=== PATIENT | male | born 1960 | race Caucasian/White ===

== ENCOUNTER 2017-04-23 16:10 | Inpatient (IN) | payer MEDICARE ==
[2017-04-23] MEDS ORDERED: AZITHROMYCIN 500 MG in DEXTROSE 5 % IN WATER 250 ML IV ONE ×2 (18:32)
[2017-04-23] MEDS: NORMAL SALINE 1,000 ML IV PRN (20:26)
[2017-04-23] MEDS: ALBUTEROL SULFATE/IPRATROPIUM 3 ML NEBU IH SCH ×2 (21:38→23:00)
[2017-04-23] MEDS ORDERED: METHYLPREDNISOLONE SOD SUCC/PF 40 MG/ML VIAL IV ONE (21:50)
[2017-04-23] MEDS ORDERED: PANTOPRAZOLE SODIUM 40 MG in NORMAL SALINE 100 ML IV SCH (22:00)
--- NOTE | 2017-04-23 22:04 | HP ---
Chief Complaint - Chief Complaint Date of Service: 04/23/17 Time of Service: 21:26 Chief Complaint: Shortness of breath, cough History of Present Illness: 56 years old white male adm to the hospital from the walkin clinic, with reports of increased shortness of breath on exertion and productive cough. he denies chills, fever, chest pain or palpitation. PMH significant COPD, Emphysema, Alpha 1 antitrypsin deficiency and perforated colon. pt stated he saw medical assistant float in [place] few days before thanksgiving, he was diagnosed with influenza A and was treated with prednisone x3 days, oxygen 3L nasal cannula PRN, Levaquin and neb treatment. A week later he followed up for his routine exam. Despite earlier treatment he continued to have increased shortness of breath and a productive cough.He had a CXR done and treatment was repeated at increased does. However he continue to have increased s/s and felt he was getting worst. He had appt today with medical assistant float but due to the freezing temperature he missed appt and came to the walkin clinic instead. CXR: new right lower lobe pneumonia, initiated Rocephin, Azithromycin, IV solumedrol , neb treatment, oxygen and IVF. Plan of care discussed with pt he verbalized understanding and agrees. - Patient's Past Medical History Patient History - Medical: Anxiety, Arthritis, GERD, Headache, Liver Disease, Other - Alpha 1 antitrypsin deficiency Patient History - Cardiac/Respiratory: Asthma, COPD, Hypertension, Pneumonia, Home O2 Use - 3L nasal cannula, CPAP/BiPAP Home Use Patient History - Cancer: No Hx of Cancer Patient History - Surgical Procedures: Colon Resection, EGD Patient History - Other: None - Family History Mother Family History - Medical: Family History - Cardiac/Respiratory: Myocardial Infarction Father Family History - Medical: Family History - Cardiac/Respiratory: Myocardial Infarction - Social History Living Situations: alone Abuse History: No History of abuse Psych History: Hx of Anxiety Smoking Status: Former smoker Have you smoked in the past 12 months: No Do you dip or chew tobacco: No Alcohol Use: none Drug Use: none Review Of Systems (GEN) - Review of Systems Generalized/Overall Review: Present: Fever EENTM: Present: No Symptoms Reported Respiratory: Present: Cough, Shortness of Breath Cardiac: Present: No Symptoms Reported Abdominal: Present: No Symptoms Reported Genitourinary: Present: No Symptoms Reported Musculoskeletal: Present: No Symptoms Reported Neurological: Present: No Symptoms Reported Skin: Present: No Symptoms Reported Endocrine: Present: No Symptoms Reported Allergies/Adverse Reactions: Allergies Allergy/AdvReac Type Severity Reaction Status Date / Time No Known Allergies Allergy Unverified 04/23/17 19:19 Home Medications: HOME MEDICATIONS ALPRAZolam [Xanax] 0.5 mg PO HS PRN 04/23/17 [Last Taken Unknown] Aspirin [Aspirin EC] 81 PO DAILY 04/23/17 [Last Taken Unknown] Fluticasone/Salmeterol [Advair 500-50 Diskus] 1 IH DAILY 04/23/17 [Last Taken Unknown] Tiotropium [place] [Spiriva] 5 IH DAILY 04/23/17 [Last Taken Unknown] guaiFENesin [Mucinex] 600 DAILY 04/23/17 [Last Taken Unknown] Exam - Exam Vital Signs: Vital Signs - Last Taken Temp 36.8 C 04/23/17 18:34 Pulse 96 04/23/17 18:34 Resp 18 04/23/17 18:34 BP 144/81 04/23/17 18:34 Pulse Ox 95 04/23/17 18:34 Constitutional: Present: Alert, Oriented x3, Cooperative, Middle aged ENT Exam: Present: normal ENT inspection Eye Exam: bilateral eye: normal inspection Neck: Present: non-tender, full range of motion, supple, normal inspection Back Exam: Present: normal inspection Respiratory: Present: chest non-tender, no accessory muscle use, respiratory distress, decreased breath sounds, rhonchi Cardiovascular/Chest: Present: normal peripheral pulses, regular rate, rhythm, no chest tenderness, no edema Peripheral Pulses: dorsalis-pedis (R): 2+, dorsalis-pedis (L): 2+ Abdomen: Present: Normal bowel sounds, soft, nontender, nondistended, no rebound tenderness /Rectal: Present: Exam deferred Extremity: Present: normal range of motion, non-tender, normal inspection, no pedal edema, no calf tenderness Skin Exam: Present: normal color, no cyanosis Lymphatic: Present: no adenopathy Neurologic: Present: oriented x 3 Appearance: Present: appropriate appearance, appropriate insight Eye contact: Present: cooperative, good eye contact Thoughts: Present: normal thought pattern Diagnostic Studies: Laboratory Results Mycoplasma pneumon IgM Non reactive (NonReactive) 04/23/17 16:00 Assessment/Plan - Narrative Narrative: Pneumonia pt failed out-pt treatment, he was treated with Levaquin x2, steroid and neb treatment Will continue with Rocephin, Azithromycin, solu-medrol 80mg x1 now then schedule Solu-medrol 60mg Schedule Duoneb Q4hr Continue with IVF Supplemented oxygen Monitor CBC in am On adm WBC 13.4, bands 5, Procal 0.30 Lactic acid 2.5 ---->1.6 CT chest pending Alpha 1 Antitrypsin deficiency pt follow up with Pulmonary clinic in [place] He missed todays appt due to severe temperature, was seen at the walkin clinic Continue with plan as above Resumed home medications COPD exacerbation- likely due to pneumonia Continue with plans as above Code status:DNR VTE ppx: SCD and ambulate GI ppx: Protonix Time 45 minutes and case discussed with Dr Nelson - Assessment/Plan (1) Tvlhx-3-[id number] deficiency Problem: Chronic (2) Pneumonia Problem: Acute (3) COPD (chronic obstructive pulmonary disease) Problem: Chronic
[2017-04-24] MEDS: ALPRAZolam 0.5 MG TABLET PO PRN ×2 (01:10→21:18)
[2017-04-24] MEDS: ALBUTEROL SULFATE/IPRATROPIUM 3 ML NEBU IH SCH ×6 (02:24→22:44)
[2017-04-24] MEDS: NORMAL SALINE 1,000 ML IV PRN ×3 (05:17→21:23)
[2017-04-24] MEDS ORDERED: CYCLOBENZAPRINE HCL 10 MG TABLET PO PRN (06:00)
[2017-04-24] MEDS ORDERED: BENZONATATE 100 MG CAPSULE PO PRN (06:00)
[2017-04-24] MEDS ORDERED: ALBUTEROL SULFATE 2.5 MG/0.5 ML VIAL.NEB IH PRN (06:00)
[2017-04-24 06:24] LABS: Hematocrit 40.8 % (42.0-52.0); Hemoglobin 14.3 gm/dL (13.5-18.0); Mean Cell Volume 91.1 fl (78-100); Mean Corpuscular Hemoglobin 31.9 pg (27-31); Mean Platelet Volume 9.8 fl (6.0-9.5); Platelet Count 55 K/mm3 (150-450); Red Blood Count 4.48 M/mm3 (4.7-6.0); Red Cell Distribution Width 13.3 % (11.5-14.0); White Blood Count 10.4 K/mm3 (4.0-10.5)
[2017-04-24 06:26] LABS: Total Cells Counted 100
[2017-04-24 06:55] LABS: Band 3 % (0-2.0); Lymphocyte 5 % (20-51); Monocyte 1 % (0-9); Neutrophil 91 % (42-75); Neutrophil # 9.5 K/mm3 (1.3-6.0)
[2017-04-24 06:56] LABS: Platelet Estimate Normal (NORMAL); RBC Morphology Normal (NORMAL)
[2017-04-24 07:31] LABS: Anion Gap 10.5 mmol/L (6.8-13.8); BUN/Creatinine Ratio 13.2 (9.0-21.6); Calcium * 8.3 mg/dL (7.9-10.9); Carbon Dioxide 24.9 mmol/L (24-32.6); Estimated Creat Clear 89.6; Potassium 4.4 mmol/L (3.4-4.6)
[2017-04-24] MEDS: FLUTICASONE/SALMETEROL 14 PUFF DISK.W.DEV IH SCH ×2 (08:10→21:19)
[2017-04-24] MEDS: ROFLUMILAST 500 MCG TABLET PO SCH (08:12)
[2017-04-24] MEDS: ASPIRIN 81 MG TABLET.DR PO SCH (08:12)
[2017-04-24] MEDS: LACTOBACILLUS ACIDOPHILUS 100 CAP BTL PO SCH (08:12)
[2017-04-24] MEDS: ECHINACEA 380 MG PO SCH (08:19)
[2017-04-24] MEDS: MILK THISTLE 175 MG PO SCH (08:20)
[2017-04-24] MEDS: MULTIVITAMINS 1 CAP CAPSULE PO SCH (08:27)
[2017-04-24] MEDS: OMEGA-3 FATTY ACIDS 1 CAP CAPSULE PO SCH (08:28)
[2017-04-24] MEDS: [UNRECOGNIZED DRUG - OTHER] PO SCH (08:28)
[2017-04-24] MEDS ORDERED: OMEPRAZOLE 20 MG PO SCH (09:00)
[2017-04-24] MEDS ORDERED: TIOTROPIUM BROMIDE 5 CAP INHALER IH SCH (09:00)
[2017-04-24] MEDS: cefTRIAXone SODIUM 1,000 MG in DEXTROSE 5 % IN WATER 50 ML IV SCH ×2 (09:21)
[2017-04-24] MEDS: METHYLPREDNISOLONE SOD SUCC 60 MG in WATER FOR INJ.,BACTERIOSTATIC 0 ML IV SCH ×3 (09:23→21:20)
[2017-04-24] MEDS: AZITHROMYCIN 500 MG in DEXTROSE 5 % IN WATER 250 ML IV SCH ×2 (10:09)
[2017-04-24] MEDS ORDERED: ONDANSETRON HCL/PF 2 MG/ML VIAL IV PRN (12:02)
[2017-04-24] MEDS: PANTOPRAZOLE SODIUM 40 MG TABLET.EC PO SCH ×2 (13:22→21:19)
[2017-04-24 19:34] LABS: Hematocrit 42.2 % (42.0-52.0); Hemoglobin 14.8 gm/dL (13.5-18.0); Mean Cell Volume 90.2 fl (78-100); Mean Corpuscular Hemoglobin 31.6 pg (27-31); Mean Corpuscular Hgb Conc 35.1 g/dl (32-36); Mean Platelet Volume 10.2 fl (6.0-9.5); Neutrophil # 16.7 K/mm3 (1.3-6.0); Neutrophil % 94.5 % (42-75.0); Red Blood Count 4.68 M/mm3 (4.7-6.0); Red Cell Distribution Width 13.4 % (11.5-14.0); White Blood Count 17.6 K/mm3 (4.0-10.5)
[2017-04-24 19:37] LABS: Platelet Count 86 K/mm3 (150-450)
[2017-04-24 19:40] LABS: Anion Gap 12.2 mmol/L (6.8-13.8); BUN/Creatinine Ratio 14.9 (9.0-21.6); Calcium * 8.5 mg/dL (7.9-10.9); Carbon Dioxide 23.8 mmol/L (24-32.6); Estimated Creat Clear 86.7
--- NOTE | 2017-04-24 20:59 | PN ---
Subjective - Date and Time Seen Date: 04/24/17 Time: 20:59 Subjective Narrative: patient seen in bed no acute distress, he stated he still having shortness of breath especially with exertion. cough has improved. He need to make follow up appt to be see by pulmonary service in [place]. Objective - Review of Systems Generalized/Overall Review: Reports: No Symptoms Reported EENTM: Reports: No Symptoms Reported Respiratory: Reports: Shortness of Breath Cardiac: Reports: No Symptoms Reported Abdominal: Reports: No Symptoms Reported Genitourinary Symptoms: Reports: No Symptoms Reported Musculoskeletal Complaints: Reports: No Symptoms Reported Neurological: Reports: No Symptoms Reported Skin: Reports: No Symptoms Reported Endocrine: Reports: No Symptoms Reported - Vitals Vitals: Last Vital Signs Temp 36.9 C 04/24/17 19:18 Pulse 96 04/24/17 19:18 Resp 18 04/24/17 19:18 BP 123/75 04/24/17 19:18 Pulse Ox 97 04/24/17 19:18 - Abnormal Lab Findings Abnormal Lab Findings: Abnormal Lab Results 04/23/17 04/24/17 04/24/17 Range/Units 22:03 06:10 06:10 WBC (4.0-10.5) K/mm3 RBC 4.48 L (4.7-6.0) M/mm3 Hct 40.8 L (42.0-52.0) % MCH 31.9 H (27-31) pg Plt Count 55 L (150-450) K/mm3 MPV 9.8 H (6.0-9.5) fl Immature Gran % (Auto) (0.001-0.429) % Immature Gran # (Auto) (0.000-0.0310) K/mm3 Neutrophils % (42-75.0) % Neutrophils % (Manual) 91 H (42-75) % Band Neuts % (Manual) 3 H (0-2.0) % Lymphocytes % (20-51) % Lymphocytes % (Manual) 5 L (20-51) % Neutrophils # (1.3-6.0) K/mm3 Neutrophils # (Manual) 9.5 H (1.3-6.0) K/mm3 Lymphocytes # (1.5-3.5) k/mm3 Lymphocytes # (Manual) 0.5 L (1.5-3.5) k/mm3 Carbon Dioxide (24-32.6) mmol/L Random Glucose 350 H D (70-110) mg/dL Lactic Acid, Venous 2.7 H* (0.4-1.9) mmol/L 04/24/17 04/24/17 Range/Units 19:28 19:28 WBC 17.6 H D (4.0-10.5) K/mm3 RBC 4.68 L (4.7-6.0) M/mm3 Hct (42.0-52.0) % MCH 31.6 H (27-31) pg Plt Count 86 L (150-450) K/mm3 MPV 10.2 H (6.0-9.5) fl Immature Gran % (Auto) 1.00 H (0.001-0.429) % Immature Gran # (Auto) 0.18 H (0.000-0.0310) K/mm3 Neutrophils % 94.5 H (42-75.0) % Neutrophils % (Manual) (42-75) % Band Neuts % (Manual) (0-2.0) % Lymphocytes % 2.0 L (20-51) % Lymphocytes % (Manual) (20-51) % Neutrophils # 16.7 H (1.3-6.0) K/mm3 Neutrophils # (Manual) (1.3-6.0) K/mm3 Lymphocytes # 0.4 L (1.5-3.5) k/mm3 Lymphocytes # (Manual) (1.5-3.5) k/mm3 Carbon Dioxide 23.8 L (24-32.6) mmol/L Random Glucose 197 H D (70-110) mg/dL Lactic Acid, Venous (0.4-1.9) mmol/L - Exam Constitutional: Present: Alert, Oriented x3, Cooperative, Well developed, Middle aged ENT Exam: Present: hearing grossly normal Neck: Present: full range of motion Breasts: Present: Exam deferred Respiratory: Present: chest non-tender, no respiratory distress, rales, rhonchi Cardiovascular/Chest: Present: normal peripheral pulses, regular rate, rhythm Abdomen: Present: Normal bowel sounds, soft, nontender, nondistended, no rebound tenderness Extremity: Present: normal range of motion, non-tender, normal inspection, no pedal edema, no calf tenderness Skin Exam: Present: warm/dry Neurologic: Present: oriented x 3 Appearance: Present: appropriate appearance Eye contact: Present: cooperative, good eye contact Thoughts: Present: normal thought pattern, no apparent hallucination Assessment/Plan Plan Narrative: Pneumonia pt failed out-pt treatment, he was treated with Levaquin x2, steroid and neb treatment Will continue with Rocephin, Azithromycin, solu-medrol 80mg x1 now then schedule Solu-medrol 60mg Schedule Duoneb Q4hr Continue with IVF Supplemented oxygen Monitor CBC in am On adm WBC 13.4, bands 5, Procal 0.30 Lactic acid 2.5 ---->1.6 CT chest- Alpha 1 Antitrypsin deficiency pt follow up with Pulmonary clinic in [place] He missed todays appt due to severe temperature, was seen at the walkin clinic Continue with plan as above Resumed home medications COPD exacerbation- likely due to pneumonia Continue with plans as above Code status:DNR VTE ppx: SCD and ambulate GI ppx: Protonix Time 20 minutes and case discussed with Dr Nelson - Problems/Diagnosis (1) Embze-0-ebjmbreynvc deficiency Problem: Chronic (2) Pneumonia Problem: Acute (3) COPD (chronic obstructive pulmonary disease) Problem: Chronic
[2017-04-24] MEDS ORDERED: PANTOPRAZOLE SODIUM 40 MG in NORMAL SALINE 50 ML IV SCH (22:00)
[2017-04-25] MEDS: ALBUTEROL SULFATE/IPRATROPIUM 3 ML NEBU IH SCH ×6 (02:40→22:12)
[2017-04-25] MEDS: METHYLPREDNISOLONE SOD SUCC 60 MG in WATER FOR INJ.,BACTERIOSTATIC 0 ML IV SCH ×4 (03:12→20:10)
[2017-04-25] MEDS: NORMAL SALINE 1,000 ML IV PRN ×5 (03:29→22:22)
[2017-04-25] MEDS: PANTOPRAZOLE SODIUM 40 MG TABLET.EC PO SCH ×2 (06:44→20:10)
[2017-04-25] MEDS: FLUTICASONE/SALMETEROL 14 PUFF DISK.W.DEV IH SCH ×2 (08:46→20:09)
[2017-04-25] MEDS: ROFLUMILAST 500 MCG TABLET PO SCH (08:47)
[2017-04-25] MEDS: LACTOBACILLUS ACIDOPHILUS 100 CAP BTL PO SCH (08:47)
[2017-04-25] MEDS: ASPIRIN 81 MG TABLET.DR PO SCH (08:47)
[2017-04-25] MEDS: ECHINACEA 380 MG PO SCH (08:48)
[2017-04-25] MEDS: MULTIVITAMINS 1 CAP CAPSULE PO SCH (08:48)
[2017-04-25] MEDS: MILK THISTLE 175 MG PO SCH (08:48)
[2017-04-25] MEDS: OMEGA-3 FATTY ACIDS 1 CAP CAPSULE PO SCH (08:49)
[2017-04-25] MEDS: [UNRECOGNIZED DRUG - OTHER] PO SCH (08:49)
[2017-04-25] MEDS: AZITHROMYCIN 500 MG in DEXTROSE 5 % IN WATER 250 ML IV SCH ×2 (09:27)
[2017-04-25] MEDS: ALBUTEROL SULFATE 2.5 MG/0.5 ML VIAL.NEB IH PRN ×2 (10:04→14:02)
[2017-04-25] MEDS: cefTRIAXone SODIUM 1,000 MG in DEXTROSE 5 % IN WATER 50 ML IV SCH ×2 (11:05)
[2017-04-25] MEDS: ZOLPIDEM TARTRATE 10 MG TABLET PO SCH ×2 (14:47→20:09)
[2017-04-25] MEDS: ALPRAZolam 0.5 MG TABLET PO PRN (22:19)
--- NOTE | 2017-04-25 23:53 | PN ---
Subjective - Date and Time Seen Date: 04/25/17 Time: 21:00 Subjective Narrative: patient seen today in bed AOX3 no acute distress, pt stated when he walk he get shortness of breath but it has been much better today. he has a productive cough now with thick yellow to white sputum.He wasn't able to sleep last night and want a sleeping aid. pt anticipating DC home tomorrow with plans to see sport shoe spike assembler upon discharge. Objective - Review of Systems Generalized/Overall Review: Reports: No Symptoms Reported EENTM: Reports: No Symptoms Reported Respiratory: Reports: Cough Cardiac: Reports: No Symptoms Reported Abdominal: Reports: No Symptoms Reported Genitourinary Symptoms: Reports: No Symptoms Reported Musculoskeletal Complaints: Reports: No Symptoms Reported Neurological: Reports: No Symptoms Reported Skin: Reports: No Symptoms Reported Endocrine: Reports: No Symptoms Reported - Vitals Vitals: Last Vital Signs Temp 37.1 C 04/25/17 23:32 Pulse 101 H 04/25/17 23:32 Resp 18 04/25/17 23:32 BP 142/73 04/25/17 23:32 Pulse Ox 92 04/25/17 23:32 - Exam Constitutional: Present: Alert, Oriented x3, Cooperative, Well developed, No distress ENT Exam: Present: hearing grossly normal Neck: Present: full range of motion Breasts: Present: Exam deferred Respiratory: Present: chest non-tender, no respiratory distress, no accessory muscle use, decreased breath sounds, rhonchi Cardiovascular/Chest: Present: normal peripheral pulses, regular rate, rhythm, no chest tenderness, no edema, no gallop, no JVD Abdomen: Present: Normal bowel sounds, soft, nontender, nondistended, no rebound tenderness Extremity: Present: normal range of motion, non-tender Skin Exam: Present: warm/dry Neurologic: Present: oriented x 3 Appearance: Present: appropriate appearance Thoughts: Present: normal thought pattern, no apparent hallucination Assessment/Plan Plan Narrative: Pneumonia- gradually improving pt failed out-pt treatment, he was treated with Levaquin x2, steroid and neb treatment continue with Rocephin, Azithromycin, stop solumedol and plans for prednison upon discharge Continue with Schedule Duoneb Q4hr Supplemented oxygen PRN On adm WBC 13.4--->17.6 likely due to steriod use. Lactic acid 2.5 ---->1.6 CT chest-noted Alpha 1 Antitrypsin deficiency pt follow up with Pulmonary clinic in [place] He missed appt due to severe temperature, was seen at the walkin clinic Continue with plan as above Resumed home medications COPD exacerbation- likely due to pneumonia Continue with plans as above Code status:DNR VTE ppx: SCD and ambulate GI ppx: Protonix Time 20 minutes and case discussed with Dr Nelson - Problems/Diagnosis (1) Qbbtb-5-nygwukvwfsr deficiency Problem: Chronic (2) Pneumonia Problem: Acute (3) COPD (chronic obstructive pulmonary disease) Problem: Chronic
[2017-04-26] MEDS: ALBUTEROL SULFATE/IPRATROPIUM 3 ML NEBU IH SCH ×3 (04:10→10:43)
[2017-04-26] MEDS: PANTOPRAZOLE SODIUM 40 MG TABLET.EC PO SCH (07:20)
--- NOTE | 2017-04-26 07:32 | DS ---
<Dilshad Somers - Last Filed: 04/26/17 07:41> (1) Mdwsg-2-xnmxkwvoszu deficiency Problem: Chronic (2) Pneumonia Problem: Acute (3) COPD (chronic obstructive pulmonary disease) Problem: Chronic Description of Stay: 56 years old white male adm to the hospital from the walkin clinic, with reports of increased shortness of breath on exertion and productive cough. he denies chills, fever, chest pain or palpitation. PMH significant COPD, Emphysema, Alpha 1 antitrypsin deficiency and perforated colon. pt stated he saw specialist physician in [place] few days before thanksgiving, he was diagnosed with influenza A and was treated with prednisone x3 days, oxygen 3L nasal cannula PRN, Levaquin and neb treatment. A week later he followed up for his routine exam. Despite earlier treatment he continued to have increased shortness of breath and a productive cough.He had a CXR done and treatment was repeated at increased does. However he continue to have increased s/s and felt he was getting worst. CXR: new right lower lobe pneumonia, initiated Rocephin, Azithromycin, IV solumedrol, neb treatment, oxygen and IVF. During adm pt remains medically stable and tolerated treatment well. He is medically stable for discharge and follow up with PCP and Pulmonary services in [place]. Continue with Azithromycin, cefdinir, duoneb and Tapered dose prednisone. Procedures Performed: none Discharge Disposition: Home self care Disposition: Home self-care Condition: Stable Discharge Activity: Activity as tolerated Discharge Diet: General/regular food Referrals: Misa Nelson DO [Primary Care Provider] - Additional Patient Instructions (free text): Follow-up with Dr. Nelson within 1 week Prescriptions (Any new or edited meds): Albuterol Sulfate/Ipratropium [Duoneb 2.5-0.5MG/3ML Soln] 3 ml IH Q4HRT #1 bag ALPRAZolam [Xanax] 0.5 mg PO HS PRN #30 tablet PRN Reason: Anxiety Azithromycin 250 mg PO DAILY 10 Days tablet Cefdinir [Omnicef] 300 mg PO Q12H #20 cap guaiFENesin [Mucinex] 600 mg PO BID PRN #60 tablet.sa PRN Reason: Congestion Zolpidem Tartrate [Ambien] 10 mg PO HS PRN #30 tablet PRN Reason: Insomnia Complete Home Medications List: Complete Home Medication List: Aspirin [Aspirin EC] 81 mg PO DAILY 04/23/17 Fluticasone/Salmeterol [Advair 500-50 Diskus] 1 appl IH DAILY 04/23/17 Tiotropium [employer] [Spiriva] 5 appl IH DAILY 04/23/17 Acidophilus 1 cap PO DAILY 04/24/17 Albuterol Sulfate [Ventolin HFA] 1 puff IH Q6H PRN 04/24/17 Benzonatate [Tessalon [place]] 100 mg PO TID PRN 04/24/17 Cyclobenzaprine HCl 10 mg PO TID PRN 04/24/17 Echinacea 380 mg PO DAILY 04/24/17 Milk Thistle Seed Extract [Milk Thistle] 175 mg PO DAILY 04/24/17 Multivit-Min/Iron Fum/Folic AC [Opset-Nsldspj-Ospmhtsf Tablet] 1 each PO DAILY 04/24/17 Multivitamin/Ferrous Gluconate [Multi-Delyn with Iron Liquid] 10 mg PO DAILY 07/07 [place]-3S/Dha/Epa/Fish Oil [Fish Oil 1,200 mg Softgel] 1 each PO DAILY 04/24/17 Omeprazole 20 mg PO DAILY 04/24/17 Roflumilast [Daliresp] 500 mcg PO DAILY 04/24/17 ALPRAZolam [Xanax] 0.5 mg PO HS PRN #30 tablet 04/26/17 Albuterol Sulfate/Ipratropium [Duoneb 2.5-0.5MG/3ML Soln] 3 ml IH Q4HRT #1 bag 04/26/17 Azithromycin 250 mg PO DAILY 10 Days tablet 04/26/17 Cefdinir [Omnicef] 300 mg PO Q12H #20 cap 04/26/17 Zolpidem Tartrate [Ambien] 10 mg PO HS PRN #30 tablet 04/26/17 guaiFENesin [Mucinex] 600 mg PO BID PRN #60 tablet.sa 04/26/17 <Misa Nelson - Last Filed: 04/26/17 09:25> Procedures Performed: none Discharge Disposition: Home self care Discharge Activity: Activity as tolerated Discharge Diet: General/regular food
[2017-04-26 08:26] VITALS: BP 146/82
[2017-04-26] MEDS: FLUTICASONE/SALMETEROL 14 PUFF DISK.W.DEV IH SCH (09:25)
[2017-04-26] MEDS: LACTOBACILLUS ACIDOPHILUS 100 CAP BTL PO SCH (09:26)
[2017-04-26] MEDS: ASPIRIN 81 MG TABLET.DR PO SCH (09:26)
[2017-04-26] MEDS: ROFLUMILAST 500 MCG TABLET PO SCH (09:26)
[2017-04-26] MEDS: OMEGA-3 FATTY ACIDS 1 CAP CAPSULE PO SCH (09:27)
[2017-04-26] MEDS: MILK THISTLE 175 MG PO SCH (09:27)
[2017-04-26] MEDS: [UNRECOGNIZED DRUG - OTHER] PO SCH (09:27)
[2017-04-26] MEDS: MULTIVITAMINS 1 CAP CAPSULE PO SCH (09:27)
[2017-04-26] MEDS: ECHINACEA 380 MG PO SCH (09:27)
[2017-04-26] MEDS: cefTRIAXone SODIUM 1,000 MG in DEXTROSE 5 % IN WATER 50 ML IV SCH ×2 (09:31)
== END 2017-04-26 10:56 | disposition home or self-care (01) | DRG 195 ==
LOC: RAD 16:10 → MS 17:55
PROVIDERS: ADMIT Internal Medicine; ATTEND Internal Medicine
DX: E88.01 Alpha-1-antitrypsin deficiency; J18.9 Pneumonia, unspecified organism; F41.9 Anxiety disorder, unspecified; I10 Essential (primary) hypertension; Z87.891 Personal history of nicotine dependence; Z87.01 Personal history of pneumonia (recurrent); Z99.81 Dependence on supplemental oxygen; J43.9 Emphysema, unspecified; K21.9 Gastro-esophageal reflux disease without esophagitis; Z79.82 Long term (current) use of aspirin

== ENCOUNTER 2017-05-18 21:46 | Emergency (ER) | payer MEDICARE ==
[2017-05-18] MEDS ORDERED: HYDROcodone/ACETAMINOPHEN 1 EACH TABLET PO ONE (23:54)
[2017-05-18] MEDS ORDERED: CEPHALEXIN MONOHYDRATE 250 MG CAPSULE PO ONE (23:54)
[2017-05-18] MEDS ORDERED: HYDROcodone/ACETAMINOPHEN 1 EACH TABLET ONE (23:54)
[2017-05-18] MEDS ORDERED: CEPHALEXIN MONOHYDRATE 250 MG CAPSULE ONE (23:54)
--- NOTE | 2017-05-18 23:55 | ERNOTE ---
ENT HPI Presenting Symptoms: nosebleed, other - facial trauma Time Seen by Provider: 05/18/17 22:24 Source: patient, RN notes reviewed Exam Limitations: intoxication - Immun/Allergies/Home Medications Immunizations: IMMUNIZATION HX Immunizations Up to Date Yes History of Influenza Vaccine Yes Hx Pneumococcal Vaccination More Information Required Allergies/Adverse Reactions: Allergies Allergy/AdvReac Type Severity Reaction Status Date / Time No Known Allergies Allergy Verified 05/18/17 22:01 Home Medications: HOME MEDICATIONS Aspirin [Aspirin EC] 81 mg PO DAILY 04/23/17 [Last Taken Unknown] Fluticasone/Salmeterol [Advair 500-50 Diskus] 1 appl IH DAILY 04/23/17 [Last Taken Unknown] Tiotropium [place] [Spiriva] 5 appl IH DAILY 04/23/17 [Last Taken Unknown] Acidophilus 1 cap PO DAILY 04/24/17 [Last Taken Unknown] Albuterol Sulfate [Ventolin HFA] 1 puff IH Q6H PRN 04/24/17 [Last Taken Unknown] Cyclobenzaprine HCl 10 mg PO TID PRN 04/24/17 [Last Taken Unknown] Echinacea 380 mg PO DAILY 04/24/17 [Last Taken Unknown] Milk Thistle Seed Extract [Milk Thistle] 175 mg PO DAILY 04/24/17 [Last Taken Unknown] Multivit-Min/Iron Fum/Folic AC [Gfimt-Bqxwcig-Aeestwmg Tablet] 1 each PO DAILY 04/24/17 [Last Taken Unknown] Multivitamin/Ferrous Gluconate [Multi-Delyn with Iron Liquid] 10 mg PO DAILY 07/07 [Last Taken Unknown] [place]-3S/Dha/Epa/Fish Oil [Fish Oil 1,200 mg Softgel] 1 each PO DAILY 04/24/17 [ Last Taken Unknown] ALPRAZolam [Xanax] 0.5 mg PO HS PRN #30 tablet 04/26/17 [Last Taken Unknown] Albuterol Sulfate/Ipratropium [Duoneb 2.5-0.5MG/3ML Soln] 3 ml IH Q4HRT #1 bag 04/26/17 [Last Taken Unknown] Azithromycin 250 mg PO DAILY 10 Days tablet 04/26/17 [Last Taken Unknown] Cefdinir [Omnicef] 300 mg PO Q12H #20 cap 04/26/17 [Last Taken Unknown] Zolpidem Tartrate [Ambien] 10 mg PO HS PRN #30 tablet 04/26/17 [Last Taken Unknown] guaiFENesin [Mucinex] 600 mg PO BID PRN #60 tablet.sa 04/26/17 [Last Taken Unknown] Cephalexin Monohydrate [Keflex] 1,000 mg PO BID #40 cap 05/18/17 [Last Taken Unknown] HYDROcodone/ACETAMINOPHEN [[place] 5-325] 1 each PO Q4H PRN #16 tablet 05/18/17 [ Last Taken Unknown] - History of Present Illness Narrative: Patient brought in by friends after spending the day drinking. He lost his balance and fell flat on his face. Being drunk, he didn't place his arms out to break his fall, and smashed his face on the floor. Patient is awake and alert, albeit intoxicated. Severity: Present: severe ENT Location: Present: nose, mouth Prearrival Treatment: Present: no prearrival treatment Modifying Factors - Improves: Reports: rest Modifying Factors - Worsens: Reports: activity, coughing Associated Symptoms - ENT: Reports: nasal congestion/drainage, facial pain/ swelling Prior Treament: Reports: recently seen Review of Systems - Review of Systems Constitutional: Absent: recent illness, fever, chills EYE: Present: no symptoms reported ENT: Present: nose pain, nose congestion. Absent: ear pain, sore throat Respiratory: Absent: shortness of breath, cough Cardiology: Absent: chest pain, palpitations Gastrointestinal/Abdominal: Absent: nausea, vomiting, diarrhea, abdominal pain Genitourinary: Present: no symptoms reported Musculoskeletal: Absent: back pain, muscle pain, muscle stiffness, neck pain, joint pain Skin: Present: no symptoms reported Neurological: Absent: anxiety, depressed, headache, dizziness/light-headedness - Patient's Past Medical History Patient History - Medical: Alcohol Abuse, Anxiety, Arthritis, GERD, Headache, Liver Disease, Other Patient History - Cardiac/Respiratory: Asthma, COPD, Hypertension, Pneumonia, Home O2 Use, CPAP/BiPAP Home Use Patient History - Cancer: No Hx of Cancer Patient History - Surgical Procedures: Colon Resection, EGD Patient History - Other: None - Family History Mother Family History - Medical: Family History - Cardiac/Respiratory: Myocardial Infarction Father Family History - Medical: Family History - Cardiac/Respiratory: Myocardial Infarction - Social History Abuse History: No History of abuse Psych History: Hx of Anxiety Smoking Status: Former smoker Have you smoked in the past 12 months: No Do you dip or chew tobacco: No Smoking Stop Date: 04/22/77 Alcohol Use: heavy Drug Use: none - Immunizations Immunizations Up to Date: Yes Hx Pneumococcal Vaccination: More Information Required to Determine History of Influenza Vaccine: Yes Physical Exam - Physical Exam General Appearance: Present: wd/wn, alert, no apparent distress Head Exam: Present: contusions - facial, swelling - nose, tenderness - nose, other - upper inner lip has a small vertical laceration medially on the inside of the upper lip. Patient refused suturing of the laceration. Eye Exam: Normal inspection: bilateral, PERRL: bilateral, EOMI: bilateral Ears, Nose, Throat: Present: normal ENT inspection, normal pharynx. Absent: abnormal TM (R), abnormal TM (L) Neck: Present: normal inspection, nontender Respiratory: Present: no respiratory distress, normal breath sounds, no accessory muscle use, chest nontender, lungs clear Cardiovascular/Chest: Present: regular rate, rhythm, no murmur Gastrointestinal/Abdominal: Present: normal bowel sounds, nontender, nondistended, soft Back Exam: Present: normal inspection, normal range of motion, no vertebral tenderness Extremity Exam: Present: normal inspection, non-tender, normal range of motion, no edema Neurological Exam: Present: alert, oriented, normal mood/affect, no motor/ sensory deficits Skin Exam: Present: normal color, warm/dry ED Progress - Vital Signs Patient's Vital Signs:: I have reviewed the patient's vital signs. Vital Signs: Vital Signs 05/18/17 05/18/17 05/18/17 21:53 22:44 23:07 Temperature 36.4 C L Pulse Rate 96 102 H 104 H Respiratory 17 16 18 Rate Blood Pressure 151/92 152/87 153/96 O2 Sat by Pulse 94 95 92 Oximetry - CT/Ultrasound CT/Ultrasound Narrative: CT Maxillofacial: Incidental bilateral mandibular jovani Acute, depressed right nasal bone fracture No orbital or facial bone fracture No TMJ dislocation Deacon Clement MD - Progress/Reassessment Chief Complaint: Nose Pain/Injury Progress:: Improved Progress Note-Subjective: 05/19/17 06:56 Patient ambulated frequently out in the halls. He refused an x-ray of his right hand, stating it wasn't fractured and he didn't want it x-rayed. He also refused to have sutures put in his upper inner lip. He did agree to take antibiotics for the laceration. He was counseled on his injuries, and instructed to call Dr. Ferguson's office for further follow up on his nose. Patient verbalized understanding. His friends were called, and they came back to pick him up. Departure Clinical Impression: Laceration without foreign body of lip, initial encounter Fracture of nasal bones, open Qualifiers: Encounter type: initial encounter Qualified Code(s): S02.2XXB - Fracture of nasal bones, initial encounter for open fracture Alcohol intoxication Qualifiers: Complication of substance-induced condition: uncomplicated Qualified Code(s): F10.920 - Alcohol use, unspecified with intoxication, uncomplicated - Departure Disposition: Home self-care Condition: Good Instructions: Alcohol Intoxication, Nasal Fracture, Mouth Laceration Referrals: Misa Nelson DO [Staff Physician] - (3-5 days) Shyla Ferguson MD [Staff Physician] - (Call Saturday morning for an evaluation in 7-10 days, sooner if they feel you need to be seen sooner.) Prescriptions: Cephalexin Monohydrate [Keflex] 1,000 mg PO BID #40 cap HYDROcodone/ACETAMINOPHEN [[place] 5-325] 1 each PO Q4H PRN #16 tablet PRN Reason: Pain
[2017-05-19 08:35] VITALS: BP 153/98
== END 2017-05-19 00:02 | disposition home or self-care (01) ==
LOC: ER 21:46
DX: S02.2XXB Fracture of nasal bones, initial encounter for open fracture; Z87.891 Personal history of nicotine dependence; S01.511A Laceration without foreign body of lip, initial encounter; F10.920 Alcohol use, unspecified with intoxication, uncomplicated; W01.0XXA Fall on same level from slipping, tripping and stumbling without subsequent striking against object, initial encounter